=== PATIENT | female | born 1960 | race Caucasian/White ===

== ENCOUNTER 2017-03-26 08:00 | Outpatient (CLI) | payer BC | END 2017-03-26 08:01 | disposition home or self-care (01) | LOC: BICMAMMO 08:00 | PROVIDERS: ATTEND Internal Medicine | DX: Z13.828 Encounter for screening for other musculoskeletal disorder (principal); M81.0 Age-related osteoporosis without current pathological fracture | CPT/HCPCS: 77080 ==